=== PATIENT | male | born 1990 | race Two or more races ===

== ENCOUNTER 2024-07-20 21:24 | Emergency (ER) | payer BC, OTHER ==
[~2024-07-20] VITALS: Ht 170.2 cm; Wt 82.7 kg
[2024-07-20] MEDS ORDERED: BACDST PO (22:38)
[2024-07-20] MEDS ORDERED: IBUP-1456 PO (22:38)
[2024-07-20 22:43] VITALS: BP 132/89; PULSE 94; RESP 18; TEMP 98.4; O2SAT 97
[2024-07-20] MEDS: IBUPROFEN 800 MG TAB PO ONE (22:48)
[2024-07-20] MEDS: TETANUS-DIPTH-ACEL PERTUSSIS 0.5ML SYR Tdap IM ONE (23:07)
== END 2024-07-20 23:37 | disposition home or self-care (01) ==
LOC: ER 21:24
DX: S61.032A Puncture wound without foreign body of left thumb without damage to nail, initial encounter (principal); Z79.1 Long term (current) use of non-steroidal anti-inflammatories (NSAID); Z79.899 Other long term (current) drug therapy; W55.01XA Bitten by cat, initial encounter; Y93.89 Activity, other specified; Y92.89 Other specified places as the place of occurrence of the external cause; Y99.8 Other external cause status
CPT/HCPCS: 73140; 90471; 90715